=== PATIENT | female | born 1965 | race Caucasian/White ===

== ENCOUNTER 2016-08-08 08:38 | Outpatient (CLI) | payer OTHER ==
[2016-08-08 09:29] LABS: eGFR (African) > 60; eGFR (Non-African) > 60
--- NOTE | 2016-08-08 14:22 | Diagnostic Imaging Report ---
[facility] [address] [facility].[address] [id number] Report Submission Date: Aug 08, 2016 2:10:33 PM CDT Patient Study Name: JANY KAM Date: Aug 08, 2016 10:19:15 AM CDT Modality Type: CR Gender: F Description: CHEST : 63 Institution: [facility] Physician AYANA BELL - OP Chest -two views CLINICAL HISTORY: Cough for several months. FINDINGS: Examination of the chest in PA and lateral views with no prior film for comparison demonstrates the lungs to be free of coalescent infiltrate. Cardiac silhouette is prominent. Degenerative changes are seen in the thoracic vertebrae. IMPRESSION: Left ventricular prominence. No active disease. Thoracic spondylosis. Electronically signed on Aug 08, 2016 2:10:33 PM CDT by: Hayes HERNANDEZ
== END 2016-08-08 08:40 ==
LOC: LAB 08:38
PROVIDERS: ATTEND Family Medicine
DX: J44.9 Chronic obstructive pulmonary disease, unspecified (principal); E11.9 Type 2 diabetes mellitus without complications; M47.814 Spondylosis without myelopathy or radiculopathy, thoracic region
CPT/HCPCS: 36415; 71020; 80053; 80061; 82043; 83036

== ENCOUNTER 2017-02-08 09:36 | Outpatient (CLI) | payer MEDICARE, OTHER ==
[2017-02-08 10:51] LABS: eGFR (African) > 60; eGFR (Non-African) > 60
== END 2017-02-08 09:37 ==
LOC: LAB 09:36
PROVIDERS: ATTEND Family Medicine
DX: E11.9 Type 2 diabetes mellitus without complications (principal); E78.5 Hyperlipidemia, unspecified; R53.83 Other fatigue
CPT/HCPCS: 36415; 80053; 80061; 82043; 83036; 84439; 84443; 84481

== ENCOUNTER 2017-08-09 14:49 | Outpatient (CLI) | payer MEDICARE, OTHER ==
[2017-08-09 15:35] LABS: eGFR (African) > 60; eGFR (Non-African) > 60
== END 2017-08-09 14:50 ==
LOC: LAB 14:49
PROVIDERS: ATTEND Family Medicine
DX: E11.9 Type 2 diabetes mellitus without complications (principal); E78.5 Hyperlipidemia, unspecified
CPT/HCPCS: 36415; 80053; 82043; 83036

== ENCOUNTER 2018-04-12 09:58 | Outpatient (CLI) | payer MEDICARE, OTHER ==
[2018-04-12 11:21] LABS: BASOPHILS % 0.5 (0.0-1.5); EOSINOPHILS % 3.2 % (0.0-6.8); MEAN CORPUSCULAR HEMOGLOBIN 29.2 pg (28.0-34.0); MONOCYTES % 5.5 % (0.0-11.0); NEUTROPHILS # 4.8 # k/uL (1.4-7.7)
[2018-04-12 12:39] LABS: eGFR (Non-African) > 60
== END 2018-04-12 10:00 ==
LOC: LAB 09:58
PROVIDERS: ATTEND Family Medicine
DX: E11.9 Type 2 diabetes mellitus without complications (principal); E78.5 Hyperlipidemia, unspecified; R06.09 Other forms of dyspnea; R53.82 Chronic fatigue, unspecified
CPT/HCPCS: 36415; 80053; 80061; 83036; 84443; 85025